=== PATIENT | male | born 1975 | race African-American/Black ===

== ENCOUNTER 2018-09-30 06:45 | Emergency (ER) | payer MEDICAID ==
[~2018-09-30] VITALS: Ht 188 cm; Wt 114.0 kg
[2018-09-30] MEDS ORDERED: TRAMADOL 50MG TABLET PO ONE (07:30)
[2018-09-30] MEDS ORDERED: AMOXICILLIN/POTASSIUM CLAVULANATE 875/125MG TAB PO ONE (07:45)
[2018-09-30] MEDS ORDERED: KETOROLAC 15MG/ML VIAL IM ONE (08:15)
[2018-09-30 09:45] VITALS: BP 172/83
== END 2018-09-30 10:44 | disposition home or self-care (01) ==
LOC: ER 06:45
DX: R51 Headache (principal); H66.92 Otitis media, unspecified, left ear; K08.89 Other specified disorders of teeth and supporting structures; I10 Essential (primary) hypertension; Z88.0 Allergy status to penicillin; F17.210 Nicotine dependence, cigarettes, uncomplicated
CPT/HCPCS: 96372; 99283; J1885